=== PATIENT | female | born 1930 | race Caucasian/White ===

== ENCOUNTER 2017-09-30 14:57 | Inpatient (IN) | payer OTHER ==
--- NOTE | 2017-09-30 15:35 | EDPHY ---
H & P Time Seen by Provider: 09/30/17 15:16 HPI/ROS: CHIEF COMPLAINT: Difficulty breathing HISTORY OF PRESENT ILLNESS: The patient is a 86-year-old female with a history of COPD who presents emergency department increasing shortness of breath. The patient is visiting her daughter. She flew in from [place] on Friday. After arrival she noticed that her left foot was swollen. That is improved since her arrival. She has no leg pain. Patient is had increasing shortness of breath. She feels fatigued when she walks upstairs. She has a chronic cough that is unchanged. She denies fevers or chills. No chest pain. REVIEW OF SYSTEMS: My complete review of systems is negative except as mentioned in the HPI. Past Medical/Surgical History: Includes COPD, DVT in the right leg, PE Smoking Status: Former smoker Physical Exam: Vitals noted GENERAL: Well-appearing, in no acute distress, alert. HEENT: Eyes normal to inspection, normal pharynx, no signs of dehydration. NECK: No thyromegaly, no lymphadenopathy, supple. RESPIRATORY: Clear to auscultation bilaterally, no rales, rhonchi or wheezing. CVS: Regular rate and rhythm, no rubs, murmurs, or gallops. ABDOMEN: Soft, nontender, nondistended, no organomegaly. BACK: Normal to inspection, no CVA tenderness. SKIN: Normal color, no rash, warm, dry. No pallor. EXTREMITIES: No pedal edema, no calf tenderness, no Homans sign or cords, no joint swelling. NEURO/PSYCH: Alert and oriented, normal mood and affect, normal motor sensory exam. Constitutional: Initial Vital Signs Temperature (C) 37 C 09/30/17 15:13 Heart Rate 80 09/30/17 15:13 Respiratory Rate 16 09/30/17 15:13 Blood Pressure 116/65 09/30/17 15:13 O2 Sat (%) 94 09/30/17 15:13 O2 Delivery Mode Room Air Allergies/Adverse Reactions: No Known Allergies Allergy (Unverified 09/30/17 15:10) Home Medications: Medication Instructions Recorded [place] Thyroid 09/30/17 Coumadin 09/30/17 Diltiazem 09/30/17 Flonase Nasal [place] 09/30/17 Lasix 09/30/17 Medical Decision Making - Diagnostics EKG Interpretation: Sinus rhythm at 91. Patient has ventricular trigeminy. Left axis deviation. Imaging Results: Imaging Impressions Extremity Venous Study 09/30/17 15:39 Impression: Positive deep venous thrombosis involving the left popliteal and femoral veins. Findings and recommendations discussed with Emergency Department physician, VAN ALFORD at 16:26 hour, 09/30/2017. Final report concurs with initial preliminary interpretation. ED Course/Re-evaluation: In the emergency department I met the patient on arrival. I discussed possible etiologies. I answered the patient's questions. IV was placed. Laboratory studies, EKG and chest x-ray were obtained. Because of the patient's left ft swelling and ultrasound was ordered. Patient has elevated white count of 13. LLE ultrasound: Patient is noted to have a DVT. Please refer the dictated report by Dr. Doss. I ordered Lovenox 60 mg subcu. I discussed the case with Dr. Bob. He will admit the patient. Patient has elevated troponin [place] 0.[place] [address]. 1650: I discussed all results with the patient. I answered her questions. I discussed her diagnosis of clotting. When this was mentioned she states that she previously had a DVT and PE. She states that she is currently taking Coumadin. She did not initially relay this information when I 1st evaluated her. Because of this I ordered PT PTT. Differential Diagnosis: My differential includes but is not limited to ACS, acute NC, bronchitis, pneumonia, influenza, viral illness, PE - Data Points Laboratory Results: Laboratory Results 09/30/17 15:45 09/30/17 15:45 09/30/17 09/30/17 09/30/17 15:45 15:45 15:45 WBC 13.89 10^3/uL H 10^3/uL (3.80-9.50) RBC 3.94 10^6/uL L 10^6/uL (4.18-5.33) Hgb 12.1 g/dL L g/dL (12.6-16.3) Hct 36.0 % L % (38.0-47.0) MCV 91.4 fL fL (81.5-99.8) MCH 30.7 pg pg (27.9-34.1) MCHC 33.6 g/dL g/dL (32.4-36.7) RDW 18.3 % H % (11.5-15.2) Plt Count 251 10^3/uL 10^3/uL (150-400) MPV 11.8 fL H fL (8.7-11.7) Neut % (Auto) 77.7 % H % (39.3-74.2) Lymph % (Auto) 11.8 % L % (15.0-45.0) [place] % (Auto) 8.1 % % (4.5-13.0) Eos % (Auto) 1.2 % % (0.6-7.6) Baso % (Auto) 0.6 % % (0.3-1.7) Nucleat RBC Rel Count 0.0 % % (0.0-0.2) Absolute Neuts (auto) 10.78 10^3/uL H 10^3/uL (1.70-6.50) Absolute Lymphs (auto) 1.64 10^3/uL 10^3/uL (1.00-3.00) Absolute Monos (auto) 1.13 10^3/uL H 10^3/uL (0.30-0.80) Absolute Eos (auto) 0.17 10^3/uL 10^3/uL (0.03-0.40) Absolute Basos (auto) 0.08 10^3/uL 10^3/uL (0.02-0.10) Absolute Nucleated RBC 0.00 10^3/uL 10^3/uL (0-0.01) Immature Gran % 0.6 % % (0.0-1.1) Immature Gran # 0.09 10^3/uL 10^3/uL (0.00-0.10) PT Pending INR Pending APTT Pending Sodium 134 mEq/L L mEq/L (135-145) Potassium 4.0 mEq/L mEq/L (3.3-5.0) Chloride 100 mEq/L mEq/L (97-110) Carbon Dioxide 25 mEq/l mEq/l (22-31) Anion Gap 9 mEq/L mEq/L (8-16) BUN 21 mg/dL mg/dL (7-23) Creatinine 0.7 mg/dL mg/dL (0.6-1.0) Estimated GFR > 60 Glucose 108 mg/dL H mg/dL (70-100) Calcium 8.7 mg/dL mg/dL (8.5-10.4) Troponin I 0.086 ng/mL H ng/mL (0.000-0.034) NT-Pro-B Natriuret Pep 92039 pg/mL H pg/mL (0-450) Medications Given: Discontinued Medications Enoxaparin Sodium (Lovenox) 60 mg SC EDNOW ONE Stop: 09/30/17 16:35 Last Admin: 09/30/17 16:54 Dose: Not Given Departure - Departure Disposition: [facility] Inpatient Acute Clinical Impression: Shortness of breath DVT (deep venous thrombosis) Qualifiers: DVT location: lower extremity Affected thrombotic vein of extremity: femoral Chronicity: acute Laterality: left Qualified Code(s): I82.412 - Acute embolism and thrombosis of left femoral vein CHF (congestive heart failure) Qualifiers: Heart failure type: other Qualified Code(s): I50.9 - Heart failure, unspecified Condition: Good
[2017-09-30 15:54] LABS: PLATELET COUNT 251 10^3/uL (150-400)
--- NOTE | 2017-09-30 16:23 | CPEKG ---
Heart Rate: 91 RR Interval: 659 P-R Interval: 164 QRSD Interval: 84 QT Interval: 372 QTC Interval: 458 P [place]: 77 QRS [place]: -31 T Wave [place]: 62 EKG Severity - ABNORMAL ECG - EKG Impression: SINUS RHYTHM EKG Impression: Frequent PVC EKG Impression: PROBABLE LEFT ATRIAL ABNORMALITY EKG Impression: LEFT AXIS DEVIATION EKG Impression: PROBABLE ANTEROSEPTAL INFARCT, AGE INDETERM Electronically Signed By: Magen Anderson 02-Oct-2017 08:53:37
[2017-09-30] MEDS ORDERED: ENOXAPARIN 60 MG/0.6 ML SYR SC ONE (16:34)
[2017-09-30] MEDS ORDERED: IOPAMIDOL (ISOVUE 370) 100 ML BTL IV ONE (17:08)
[2017-09-30 17:17] LABS: INR 2.48 (0.83-1.16); PROTIME(PATIENT) 26.8 SEC (12.0-15.0)
[2017-09-30] MEDS ORDERED: ACETAMINOPHEN 325 MG TAB PO PRN (17:53)
[2017-09-30] MEDS ORDERED: ONDANSETRON 4 MG/2 ML VIAL IVP PRN (17:53)
--- NOTE | 2017-09-30 18:29 | GHP ---
[f rep st] HISTORY AND PHYSICAL DATE OF ADMISSION: 09/30/2017 CHIEF COMPLAINT: Shortness of breath and leg swelling. 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 Upon disembarking the plan e on Friday she noticed some swelling in her left leg. Over the past few days, she has had increasin g shortness of breath and dry mouth. She has been trying to drink more water. This has not helped. She is on Lasix for history of congestive heart failure as well which she has been taking. She mckinley es any chest pain. She does have chronic dry nonproductive cough. She tells me she has been complia nt with her warfarin. She has not missed any doses. Her INR had been running high a couple of weeks ago, but her dose was decreased. PAST MEDICAL HISTORY: 1. Chronic obstructive pulmonary disease. 2. Congestive heart failure. 3. Non-Hodgkin's lymphoma. 4. PE and DVT. 5. Postnasal drip. PAST SURGICAL HISTORY: 1. Bladder suspension. 2. Hysterectomy. HOME MEDICATIONS: Reviewed, refer to [facility] for details. ALLERGIES: No known drug allergies. SOCIAL HISTORY: She quit smoking in the 70s. She denies any significant alcohol use. She denies an y illicit drug use. FAMILY HISTORY: Reviewed and noncontributory. REVIEW OF SYSTEMS: Comprehensive 10-point review of systems was done and is negative, except for as mentioned in the HPI. PHYSICAL EXAM: VITAL SIGNS: Blood pressure 121/77, pulse of 77, respiratory rate 20, O2 saturation 96% on room air. Temperature afebrile. GENERAL: No acute distress. HEAD: Normocephalic, atraumat ic. EYES: PERRLA. Sclerae anicteric. MOUTH: Moist mucous membranes. NECK: Supple. No lymphade nopathy. CARDIOVASCULAR: S1-S2 no JVD. No lower extremity edema. PULMONARY: Lungs are clear. No wheezes, rales, or rhonchi. ABDOMEN: Soft, nontender, nondistended. No guarding or rebound tender ness. Normoactive bowel sounds. EXTREMITIES: Left leg is swollen. There are 2+ dorsal pedal and p osterior tibial pulses. SKIN: Clear, no rashes. NEURO: Cranial nerves 2-12 grossly intact. No fo [place] motor or sensory deficits. DIAGNOSTICS: WBC is 13.89, hemoglobin 12.1, hematocrit 36, platelets 251. INR 2.48. Sodium 134, po tassium 4, chloride 100, CO2 25, BUN 21, creatinine 0.7, glucose 108, calcium 8.7. Troponin: Indete rminate at 0.086. BNP is 10,000. Chest x-ray, which I visualized and personally interpreted, shows borderline cardiomegaly without pul monary edema. EKG, which I visualized and personally interpreted, shows sinus rhythm, rate 91 beats per minute. Th ere are multiple PVCs. CT angio of the chest: Preliminary read was negative for PE. ASSESSMENT AND PLAN: This is an 86-year-old female visiting from [place] on Warfarin with a therap eutic INR presenting with: 1. Left lower extremity DVT seen on ultrasound representing Coumadin failure. PLAN: The patient wi ll be started on low-molecular weight heparin and warfarin will be held. The patient plans to follow up with a hotel server back in [place] for further workup. 2. Shortness of breath with history of COPD and congestive heart failure with elevated BNP which I s uspect is due to mildly decompensated diastolic heart failure given her exam. PLAN: The patient cherelle ears to be euvolemic at this time. We will hold diuretic and obtain echocardiogram to further evalua te her myocardium and ejection fraction. 3. Indeterminate troponin. PLAN: We will cycle and treat accordingly. DISPOSITION: The patient will be placed on observation for now pending further workup and evaluation . /[id number]/MODL
[2017-09-30] MEDS ORDERED: FLUTICASONE NASAL 120 SPRAYS/16 GM MDI EACHNARE PRN (19:01)
[2017-09-30] MEDS: ENOXAPARIN 60 MG/0.6 ML SYR SC SCH (21:13)
[2017-10-01 04:19] LABS: PLATELET COUNT 250 10^3/uL (150-400)
[2017-10-01] MEDS: THYROID 30 MG TAB PO SCH (08:40)
[2017-10-01] MEDS: FUROSEMIDE 20 MG TAB PO SCH (08:41)
[2017-10-01] MEDS: DILTIAZEM CD 120 MG CAP PO SCH (08:41)
[2017-10-01] MEDS: ENOXAPARIN 60 MG/0.6 ML SYR SC SCH ×2 (08:41→21:34)
[2017-10-01] MEDS ORDERED: DILTIAZEM 120 MG PO SCH (09:00)
[2017-10-01] MEDS ORDERED: THYROID 60 MG TAB PO SCH (10:00)
[2017-10-01] MEDS ORDERED: FUROSEMIDE 20 MG/2 ML VIAL IVP ONE (10:52)
[2017-10-01] MEDS: methylPREDNISolone SOD SUCC 125 MG/2 ML VIAL IVP SCH ×3 (11:49→21:33)
[2017-10-01] MEDS: ALBUTEROL 3 ML DEYVIAL IH SCH ×3 (12:00→20:56)
--- NOTE | 2017-10-01 12:04 | ECHO ---
[email or web address] [address] Main: [phone] Fax: Transthoracic Echocardiogram Name: ANGELICA FERNANDES MR#: [id number] Study Date: 10/01/2017 Study Time: 07:57 AM Date of : 1930 Age: 86 year(s) Height: 152.4 cm (60 in.) Weight: 55.79 kg (123 lb.) BSA: 1.52 m2 Gender: Female Examination: Echo Indication: Heart failure Image Quality: Contrast: Requested by: Heriberto Bob BP: 102 mmHg/75 mmHg Heart Rate: Rhythm: Indication: Heart failure Procedure Staff Child Development Director: Kayla Hunter RDCS Reading Physician: Robbie Dunlap MD Requesting Provider: Conclusions: No pericardial effusion. Ejection fraction 40-45%. Mitral annular calcification with moderate to severe mitral regurgitation left atrial enlargement. Aortic valve leaflet calcification with mild aortic regurgitation. Measurements: Chambers Valvular Assessment AV/MV Valvular Assessment TV/PV Normal Normal Normal Name Value Range Name Value Range Name Value Range Ao Pati (MM): 3.5 cm (2.2 cm-3.7 AV meanP mmHg ( - ) TR Vmax: 3.47 mm/s ( - ) cm) DAVON (VTI): 2.3 cm ( - ) TR PGmax: 48 mmHg ( - ) IVSd (2D): 0.8 cm (0.6 cm-1.1 MV E Vmax: 1.16 m/s ( - ) syst. PAP: 58 mmHg ( - ) cm) MV A Vmax: 0.91 m/s ( - ) LVDd (2D): 4.8 cm (3.9 cm-5.3 MV E/A: 1.27 ( - ) cm) MV meanP mmHg ( - ) LVDs (2D): 3.8 cm (2.1 cm-4 cm) MVA (Vmax): 1.6 m/s ( - ) LVPWd (2D): 0.6 cm ( - ) LVOTd 1.9 cm 1.9 cm mm LVEF (2D): 39 (>=54 %) EF Range: 40-45 % Continued Measurements: Chambers Valvular Assessment AV/MV Valvular Assessment TV/PV Name Value Name Value Name Value LADs: 4.0 cm MV Annulus: 3.1 cm CVP (est.): 10 mmHg LADs Lon.0 cm MV E' Septal: 0.06 m/s LA Area: 17.3 cm2 MV E/E' Septal: 20.90 LA Volume: 56 ml MV E/E' Lateral: 18.30 LA Volume Index: 36.8 ml/m2 MV VTI: 25.60 cm Patient: ANGELICA FERNANDES Study Date: 10/01/2017 Page 1 of 2 07:57 AM MR Vena Contracta: 0.4 cm MR ERO: 0.160 cm2 MR PISA radius: 5 mm MR Reg. Volume: 17 ml MR Reg. Fraction: 9 % Findings: Left Ventricle: Normal size left ventricle. No LV hypertrophy. Normal global systolic LV function. The ejection fraction is estimated to be 40-45 %. Diastolic dysfunction is present. . LV septal wall and basal inferior/inferoseptal marin appears hypokinetic. . Right Ventricle: Normal size right ventricle. There is a moderator band noted in the right ventricle. Left Atrium: The left atrium is mildly dilated. Right Atrium: The right atrium is mildly dilated. Mitral Valve: Moderate mitral annular calcification. Mild mitral valve leaflet calcification is present. Moderate to severe mitral regurgitation. Aortic Valve: The aortic valve is tri-leaflet. Mild aortic valve regurgitation is present. Moderate calcification of the NCC of the aortic valve.. Tricuspid Valve: The tricuspid valve is normal in appearance and function. Moderate tricuspid regurgitation is present. Pulmonic Valve: The pulmonic valve is normal in appearance and function. Trivial pulmonic valve regurgitation. Aorta: The aorta is normal. Pericardium: No pericardial effusion. There is pericardial fat. Exam Comments: Due to pt's arrthythmia, unable to trace for accurate EF.. (No Signature Object) Patient: ANGELICA FERNANDES Study Date: 10/01/2017 Page 2 of 2 07:57 AM [id number]
--- NOTE | 2017-10-01 12:09 | ASMTCASEMG ---
Living Arrangements What is your living Answers: Alone arrangement? Who do you live with? Type Of Residence What kind of residence do Answers: House you live in? Discharge Plan Comments Coordination Status Comments Notes: Pts case discussed in morning rounds. Pt is a 86 y/o female admitted for shortness of breath and leg swelling. Pt is here visiting her daughter and grand daughter. Pt lives in [place]. Therapies have been ordered and awaiting recommendations. Needs are TBD at this time. CM to follow. Plan: TBD Date Signed: 10/01/2017 12:08 PM Electronically Signed By:RIKY Fox
--- NOTE | 2017-10-01 13:08 | HOSPPROG ---
Hospitalist Progress Note Assessment/Plan: #Warfarin Failure #Acute LLE DVT -non occlusive left popliteal and femoral veins -Hx of PE and DVT's #CH #COPD with mild exacerbation #Indeterminate troponin Plan: -cont Lovenox -Cont Cardizem -Give additional Lasix x 1 -Start Solumedrol and Albuterol -Change to inpatient Subjective: Still with SOB. Mild bilateral pedal edema. no Cp. + Wheeze. no hx of supplemental O2 Objective: Vital Signs Temp Pulse Resp BP Pulse Ox 36.7 C 97 18 138/64 H 92 10/01/17 11:42 10/01/17 11:42 10/01/17 11:42 10/01/17 11:42 10/01/17 11:42 Laboratory Results 10/01/17 03:34 10/01/17 03:34 09/30/17 10/01/17 10/02/17 05:59 05:59 05:59 Intake Total 200 400 Output Total 700 300 Balance -500 100 PT 26.8 SEC (12.0-15.0) H 09/30/17 15:45 INR 2.48 (0.83-1.16) H 09/30/17 15:45 - Physical Exam Constitutional: no apparent distress, appears nourished Eyes: PERRL, EOMI Ears, Nose, Mouth, Throat: moist mucous membranes, hearing normal Cardiovascular: regular rate and rhythym, edema (trace) Respiratory: no respiratory distress, no rales or rhonchi, expiratory wheeze Gastrointestinal: normoactive bowel sounds, soft, non-tender abdomen Skin: warm Musculoskeletal: generalized weakness Neurologic: AAOx3 Psychiatric: interacting appropriately, not anxious, not encephalopathic Lymph, Heme, Immunologic: No petechiae ICD10 Worksheet Patient Problems: Problems Problem Status Onset CHF (congestive heart failure) Acute DVT (deep venous thrombosis) Acute Shortness of breath Acute
--- NOTE | 2017-10-01 16:06 | PDMN ---
Medical Necessity Medical necessity: Change to IP, as of 10/01/17, per MD; los >2 mn for ongoing management of acute LLE DVT, COPD/CHF exacerbations & indeterminate troponin; admit for further monitoring, med management, respiratory supportive care & therapy; comorbid advanced age, COPD, CHF, Non-Hodgkin's lymphoma, PE & DVT on AC; per progress note & order 10/01/17
[2017-10-02] MEDS: ALBUTEROL 3 ML DEYVIAL IH SCH ×2 (06:01→12:02)
[2017-10-02] MEDS: methylPREDNISolone SOD SUCC 125 MG/2 ML VIAL IVP SCH (06:19)
[2017-10-02] MEDS: ENOXAPARIN 60 MG/0.6 ML SYR SC SCH (08:44)
[2017-10-02] MEDS: FUROSEMIDE 20 MG TAB PO SCH (08:44)
[2017-10-02] MEDS: DILTIAZEM CD 120 MG CAP PO SCH (08:45)
[2017-10-02] MEDS: THYROID 30 MG TAB PO SCH (08:46)
--- NOTE | 2017-10-02 11:33 | ASMTLACE ---
LACE Length of stay for Answers: 2 days current admission Acuity / Level of Answers: Yes Care: Did the patient have an inpatient admission? Comorbidities - select Answers: Chronic pulmonary disease all that apply # of Emergency department Answers: 1-2 visits in the last 6 months Score: 8 Date Signed: 10/02/2017 11:32 AM Electronically Signed By:Kayli Bray
[2017-10-02 11:34] VITALS: BP 114/71
--- NOTE | 2017-10-02 11:45 | PDDCSUM ---
Discharge Summary Discharge Summary: HPI/Hospital course This is a 86 yo female with hx of VTE on lifetime chronic AC who was on Warfarin with therapeutic INR who developed a left sided non occlusive popliteal and femoral veins clots. Coumadin was discontinued. she has been started on Lovenox. We offered transition to an oral agent but as she is out of town, she wants to wait until she f/u with her Cardboard Cutter. For now she will cont with Lovenox. She was also found to be hypoxic due to mild fluid overload and mild COPD exacerbation. Lasix were given and she is Euvolemic currently. She has been started on steroids. She is on RA and ready for d/c She will f/u with her PCP and her Cardboard Cutter during the first week of October DDX: #Warfarin Failure #Acute LLE DVT -non occlusive left popliteal and femoral veins -Hx of PE and DVT's #CH #COPD with mild exacerbation #Indeterminate troponin Exam: NAD AAOX3 RRR CTA B S/NT/ND NO LE EDEMA MEDS: SEE MED REC. F/U: PER ABOVE TOTAL TIME SPENT ON D/C IS 35 MINS
--- NOTE | 2017-10-02 12:06 | ASDISCHSUM ---
Discharge Information Plan Status:Home with No Needs Medically Cleared to Leave:10/02/2017 Discharge Date:10/02/2017 CM D/C Disposition:Home, Routine, Self-Care ADT D/C Disposition:Home, Routine, Self-Care Projected Discharge Date:10/02/2017 Transportation at D/C:Family Discharge Delay Reason: Follow-Up Date:10/02/2017 Discharge Slot: Final Diagnosis: Placement Information Patient Contact Information Contact Name:YADIEL Relationship:Daughter Address: Work Phone: City:[place] Alternate Phone: State/[place] Code:[place] Email: Financial Information Financial Class:Medicare Primary Plan Desc:MEDICARE INPATIENT Primary Plan Number:[id number] Secondary Plan Desc: Secondary Plan Number:[id number] Assessment Information LACE LACE Length of stay for Answers: 2 days current admission Acuity / Level of Answers: Yes Care: Did the patient have an inpatient admission? Comorbidities - select Answers: Chronic pulmonary disease all that apply # of Emergency department Answers: 1-2 visits in the last 6 months Score: 8 Date Signed: 10/02/2017 11:32 AM Electronically Signed By:Kayli Bray [facility] Initial CM Assessment Living Arrangements What is your living Answers: Alone arrangement? Who do you live with? Type Of Residence What kind of residence do Answers: House you live in? Discharge Plan Comments Coordination Status Comments Notes: Pts case discussed in morning rounds. Pt is a 86 y/o female admitted for shortness of breath and leg swelling. Pt is here visiting her daughter and grand daughter. Pt lives in [place]. Therapies have been ordered and awaiting recommendations. Needs are TBD at this time. CM to follow. Plan: TBD Date Signed: 10/01/2017 12:08 PM Electronically Signed By:RIKY Fox Case Management Discharge Plan Note Case Management Discharge Discharge Order Complete? Answers: Yes Patient to Obtain Answers: Independently Medications Transportation Arranged Answers: Family/Friends Discharge Comments Notes: 10/02/2017 Case Management Note Pt to d/c independent today. Pt visiting her daughter in [place]. Transitional Care to follow after d/c. Date Signed: 10/02/2017 12:05 PM Electronically Signed By:Norma Fan RN Intervention Information Intervention Type:*CYNDEE-Signed Date of Service:10/01/2017 10:27 AM Patient Type:Observation Staff Member:Genesis Rangel Hours: Discipline: Severity: Comment:
== END 2017-10-02 12:45 | disposition home or self-care (01) | DRG 300 ==
LOC: OBSVTOIN 17:53 → F2W 19:44
PROVIDERS: ADMIT Family Medicine; ATTEND Family Medicine
DX: I82.412 Acute embolism and thrombosis of left femoral vein (principal); I82.432 Acute embolism and thrombosis of left popliteal vein; J44.1 Chronic obstructive pulmonary disease with (acute) exacerbation; I50.9 Heart failure, unspecified; Z79.01 Long term (current) use of anticoagulants; Z87.891 Personal history of nicotine dependence; Z85.72 Personal history of non-Hodgkin lymphomas
CPT/HCPCS: 97116-GP; 97161-GP; 97165-GO; G0378; G8978-GP-CJ; G8979-GP-CI; G8980-GP-CI; G8987-GO-CI; G8988-GO-CI; G8989-GO-CI; J1650; J1940; J2930; J7613; Q9967

== ENCOUNTER 2017-10-05 08:06 | Observation (INO) | payer OTHER ==
--- NOTE | 2017-10-05 08:17 | EDPHY ---
H & P Stated Complaint: abd pain Time Seen by Provider: 10/05/17 08:14 HPI/ROS: CHIEF COMPLAINT: Nausea and abdominal pain HISTORY OF PRESENT ILLNESS: REVIEW OF SYSTEMS: This is an 86-year-old female who was discharged from this hospital on October 02 of this year after being admitted with a left lower extremity DVT in the face of an adequate INR on Coumadin. She is currently on Lovenox twice daily. During that hospitalization she was also noted to have some congestive heart failure. She has a history of COPD. She was started on prednisone. Yesterday after taking her prednisone she developed some nausea and had a small amount of vomiting. The nausea has persisted. She has had increased belching. She notes pain in the left upper quadrant and is finding it difficult to find a comfortable position. She has not had diarrhea. She did not have a bowel movement yesterday and has not had 1 today. She would typically have a bowel movement daily. She is urinating but somewhat less than usual. She has not noticed blood in her urine. Her breathing is essentially unchanged. She is more short of breath in [place] than when at home, at sea level but this is unchanged since she arrived. No fever. No chest pain but she has had pain at the base of her ribcage on the left. A ten point review of systems was performed and is negative with the exception of the items mentioned in the HPI. Past medical history: 1. PE and DVT, currently on Lovenox 2. COPD 3. History of CHF 4. Non-Hodgkin's lymphoma in remission 5. Sinus problems with postnasal drip Past surgical history: 1. Bladder suspension 2. Hysterectomy Family history: Noncontributory Social history: She lives in [place] and is here visiting her daughter and grandchildren. She quit smoking in the . She does not use alcohol. She does not use illicit drugs. General Appearance: Alert. Vital signs reviewed. Blood pressure 123/74. Vital signs otherwise within normal limits. Eyes: Pupils equal and round, no conjunctival injection, no discharge. Anicteric. ENT, Mouth: Mucous membranes are moist, no oropharyngeal erythema or edema. Neck: No lymphadenopathy, supple. Respiratory: Lungs with bilateral rales. Cardiovascular: Regular rate and rhythm; no murmur, rub, or gallop. Gastrointestinal: Abdomen is soft and mildly tender in the left lower quadrant (top of this quadrant) without guarding, no organomegaly, there is a soft mildly tender palpable mass measuring approximately 2 cm in the left upper quadrant (could correspond to stool), mass is nonreducible, bowel sounds normal. Skin: Warm and dry, no rashes on exposed skin, normal color. Back: Nontender to palpation over the thoracolumbar spine. No CVAT. Extremities: No lower extremity edema, no calf tenderness or swelling. Neurological: Alert and oriented. Moving all four extremities easily and equally. Psychiatric: Normal affect. - Personal History Current Tetanus/Diphtheria Vaccine: Yes Current Tetanus Diphtheria and Acellular Pertussis (TDAP): Yes - Medical/Surgical History Hx Asthma: No Hx Chronic Respiratory Disease: Yes Hx Diabetes: No Hx Cardiac Disease: Yes Hx Renal Disease: No Hx Cirrhosis: No Hx Alcoholism: No Hx HIV/AIDS: No Hx Splenectomy or Spleen Trauma: No Other PMH: chf, copd, PE, DVT, hypothyroid, bladder suspension, hysterectomy, Nonhodgkins lymphoma x2, - Social History Smoking Status: Former smoker Constitutional: Initial Vital Signs Temperature (C) 36.4 C 10/05/17 08:11 Heart Rate 90 10/05/17 08:11 Respiratory Rate 20 10/05/17 08:11 Blood Pressure 123/74 H 10/05/17 08:11 O2 Sat (%) 93 10/05/17 08:11 O2 Delivery Mode Room Air Allergies/Adverse Reactions: No Known Allergies Allergy (Verified 10/05/17 11:25) Home Medications: Medication Instructions Recorded Diltiazem HCl [Diltiazem 24Hr ER] 120 mg PO DAILY 09/30/17 Fluticasone Nasal [Flonase Nasal 1 sprays NASAL DAILY PRN 09/30/17 Marcellus] Furosemide [Lasix 20 MG (*)] 20 mg PO DAILY 09/30/17 Thyroid,Pork [[place] Thyroid] 30 mg PO DAILY10 09/30/17 Albuterol Sulfate [Proair 90 mcg IH TID PRN #1 aer.[email or web address] 10/02/17 Respiclick] Enoxaparin [Lovenox 60 MG (*)] 60 mg SC BID #24 syr 10/02/17 Herbals/Supplements -Info Only 1 ea PO DAILY 10/05/17 predniSONE 20 mg PO DAILY 10/05/17 Medical Decision Making - Diagnostics Imaging Results: Imaging Impressions Abdomen CT 10/05/17 08:39 Impression: 1. 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 2. Aortic atherosclerosis. 3. Prior granulomatous disease. 4. Adenomatous hypertrophy of the left adrenal gland. Results called to Dr. Villasenor at 10:00 a.m. Chest X-Ray 10/05/17 08:47 Impression: Stable negative chest. Mild cardiac enlargement.. ED Course/Re-evaluation: 86-year-old female recently started on prednisone who presents with nausea and left side abdominal pain. CT scan shows a spigelian hernia on the left. I suspect that this corresponds to the mass that I was able to palpate. The chronicity of this hernia is unclear. She was evaluated in the emergency department by Dr. Gale Solitario, who does not feel that this is the source of her pain but agrees with hospitalization and observation. It is possible that her pain is secondary to the prednisone that she recently started the. She did not take any prednisone today. Can you try antacid medications to see if this relieves her pain. She has not had vomiting in the emergency department. I do not suspect bowel obstruction. CT scan does not indicate diverticulitis. She is not constipated and and has not had diarrhea. She is being mid to the hospitalist service for further evaluation and treatment as needed. - Data Points Laboratory Results: Laboratory Results 10/05/17 08:50 10/05/17 08:50 10/05/17 10/05/17 10/05/17 10:22 08:50 08:50 WBC RBC Hgb Hct MCV MCH MCHC RDW Plt Count MPV Neut % (Auto) Lymph % (Auto) Cavalier % (Auto) Eos % (Auto) Baso % (Auto) Nucleat RBC Rel Count Absolute Neuts (auto) Absolute Lymphs (auto) Absolute Monos (auto) Absolute Eos (auto) Absolute Basos (auto) Absolute Nucleated RBC Immature Gran % Immature Gran # VBG Lactic Acid 1.3 mmol/L mmol/L (0.7-2.1) Sodium 135 mEq/L mEq/L (135-145) Potassium 3.4 mEq/L mEq/L (3.3-5.0) Chloride 95 mEq/L L mEq/L (97-110) Carbon Dioxide 30 mEq/l mEq/l (22-31) Anion Gap 10 mEq/L mEq/L (8-16) BUN 23 mg/dL mg/dL (7-23) Creatinine 0.7 mg/dL mg/dL (0.6-1.0) Estimated GFR > 60 Glucose 188 mg/dL H mg/dL (70-100) Calcium 8.5 mg/dL mg/dL (8.5-10.4) Total Bilirubin 0.7 mg/dL mg/dL (0.1-1.4) Conjugated Bilirubin 0.4 mg/dL mg/dL (0.0-0.5) Unconjugated Bilirubin 0.3 mg/dL mg/dL (0.0-1.1) AST 33 IU/L IU/L (14-46) ALT 40 IU/L IU/L (9-52) Alkaline Phosphatase 72 IU/L IU/L (38-126) Troponin I 0.097 ng/mL H ng/mL (0.000-0.034) Total Protein 6.0 g/dL L g/dL (6.3-8.2) Albumin 3.3 g/dL L g/dL (3.5-5.0) Lipase 105 IU/L IU/L (23-300) 10/05/17 08:50 WBC 17.62 10^3/uL H 10^3/uL (3.80-9.50) RBC 3.91 10^6/uL L 10^6/uL (4.18-5.33) Hgb 12.1 g/dL L g/dL (12.6-16.3) Hct 34.9 % L % (38.0-47.0) MCV 89.3 fL fL (81.5-99.8) MCH 30.9 pg pg (27.9-34.1) MCHC 34.7 g/dL g/dL (32.4-36.7) RDW 18.0 % H % (11.5-15.2) Plt Count 250 10^3/uL 10^3/uL (150-400) MPV 11.6 fL fL (8.7-11.7) Neut % (Auto) 89.2 % H % (39.3-74.2) Lymph % (Auto) 4.4 % L % (15.0-45.0) Cavalier % (Auto) 4.8 % % (4.5-13.0) Eos % (Auto) 0.1 % L % (0.6-7.6) Baso % (Auto) 0.1 % L % (0.3-1.7) Nucleat RBC Rel Count 0.3 % H % (0.0-0.2) Absolute Neuts (auto) 15.73 10^3/uL H 10^3/uL (1.70-6.50) Absolute Lymphs (auto) 0.77 10^3/uL L 10^3/uL (1.00-3.00) Absolute Monos (auto) 0.84 10^3/uL H 10^3/uL (0.30-0.80) Absolute Eos (auto) 0.02 10^3/uL L 10^3/uL (0.03-0.40) Absolute Basos (auto) 0.02 10^3/uL 10^3/uL (0.02-0.10) Absolute Nucleated RBC 0.06 10^3/uL H 10^3/uL (0-0.01) Immature Gran % 1.4 % H % (0.0-1.1) Immature Gran # 0.24 10^3/uL H 10^3/uL (0.00-0.10) VBG Lactic Acid Sodium Potassium Chloride Carbon Dioxide Anion Gap BUN Creatinine Estimated GFR Glucose Calcium Total Bilirubin Conjugated Bilirubin Unconjugated Bilirubin AST ALT Alkaline Phosphatase Troponin I Total Protein Albumin Lipase Medications Given: Acetaminophen (Tylenol) 650 mg PO Q4HRS PRN PRN Reason: Pain, Mild/Fever, Can Take PO Stop: 04/03/18 13:23 Last Admin: 10/05/17 14:41 Dose: 650 mg Diltiazem HCl (Cardizem Er Q24hr) 120 mg PO DAILY DIONE Stop: 04/03/18 13:29 Last Admin: 10/05/17 14:41 Dose: 120 mg Enoxaparin Sodium (Lovenox) 60 mg SC BID DIONE Stop: 04/03/18 13:29 Last Admin: 10/05/17 14:41 Dose: 60 mg Furosemide (Lasix) 20 mg PO DAILY DIONE Stop: 04/03/18 13:29 Last Admin: 10/05/17 14:40 Dose: 20 mg Discontinued Medications Ondansetron HCl (Zofran) 4 mg IVP EDNOW ONE Stop: 10/05/17 08:40 Last Admin: 10/05/17 08:58 Dose: 4 mg Departure - Departure Disposition: [facility] Inpatient Acute Clinical Impression: Abdominal pain Qualifiers: Abdominal location: left upper quadrant Qualified Code(s): R10.12 - Left upper quadrant pain Condition: Good
[2017-10-05] MEDS ORDERED: ONDANSETRON 4 MG/2 ML VIAL IVP ONE (08:39)
[2017-10-05 09:08] LABS: PLATELET COUNT 250 10^3/uL (150-400)
[2017-10-05] MEDS ORDERED: IOPAMIDOL (ISOVUE-300) 100 ML BTL ONE (09:24)
[2017-10-05] MEDS ORDERED: FLUTICASONE NASAL 120 SPRAYS/16 GM MDI NS PRN (13:18)
[2017-10-05] MEDS ORDERED: ALBUTEROL SULFATE 90 MCG IH PRN (13:18)
[2017-10-05] MEDS ORDERED: PROMETHAZINE HCL 25 MG/ML INJ IVP PRN (13:24)
[2017-10-05] MEDS ORDERED: ONDANSETRON 4 MG/2 ML VIAL IVP PRN (13:24)
[2017-10-05] MEDS ORDERED: ONDANSETRON DISINTEGRATING 4 MG TAB PO PRN (13:24)
[2017-10-05] MEDS ORDERED: ACETAMINOPHEN 325 MG TAB PO PRN (13:24)
--- NOTE | 2017-10-05 14:33 | PDGENHP ---
History and Physical History and Physical: Chief complaint: Abdominal pain History of present illness: The patient is an 86yo F who returns to the hospital after she was recently discharged after having a LLE DVT and COPD exacerbation. She had failed warfarin and was put on SQ Lovenox BID. For COPD exacerbation, she was started on prednisone. Abdominal pain is located in LUQ, characterized as aching, and has a severity of 5/10 with no radiation. She has had some associated nausea with an episode of dry retching. She denies diarrhea or blood in stool. She has been constipated x 1.5 days, as she missed having a BM today and yesterday. She has had similar symptoms in the past, which subsided when she drinks Ensure because "it coats the stomach". She has not tried taking OTC medication such as acetaminophen or NSAIDs. Past medical history: COPD, CHF, non-Hodgkin lymphoma, PE and DVT. Past surgical history: Bladder suspension, hysterectomy Medications: Please see medication reconciliation form for dosages and frequencies. Medications include Armor Thyroid, diltiazem, Lovenox 60 mg twice daily, fluticasone nasal spray, furosemide, prednisone 20 mg daily. Allergies: No known allergies. Social history: Quit smoking in the 1970s. Denies alcohol use. Denies recreational drugs. Lives in [place]. She is visiting her daughter in [place]. Family history: Noncontributory Review of systems: 10 point review of systems was conducted and is negative except per HPI Physical exam: Vitals: Reviewed General: The patient is an elderly female who is alert and in no acute distress. HEENT: normocephalic, extraocular movements intact, conjunctivae clear, no lesions on face. Mucous membranes moist. Neck: trachea midline, no visible masses, no external lesions. CV: +S1/S2, RRR, no MRG. Resp: unlabored, CTAB no RRW. Abd: soft and nondistended. Bowel sounds present. Mild tenderness in left upper quadrant and mid epigastrium to deep palpation. No rebound tenderness or guarding. Musculoskeletal: Normal muscle tone and bulk. Neuro: cranial nerves II XII grossly intact. Intact gross motor and sensory function. Psych: appropriate mood/affect. Skin: No pallor. Heme/lymph: No peripheral edema. Labs: WBC 17.6 hemoglobin 12.1 platelets 250. Sodium 135 potassium 3.4 CO2 30 BUN 23 creatinine 0.7 glucose 188. Lipase 105. Other Data: Abdomen/pelvis CT with contrast-small spigelian hernia left lower quadrant containing omental fat. Abdominal Aortic atherosclerosis. Adenomatous hyperplasia left adrenal gland. Calcified granuloma in the spleen and calcified granuloma in right lower lung. Chest x-ray-no acute cardiopulmonary abnormality. Impression and plan: Abdominal pain Nausea Recent COPD exacerbation, resolved Acute LLE DVT Hx DVT/PE/thrombophilia CHF, diastolic Hx Non-Hodgkin Lymphoma, in remission -Euvolemic - no need for IVF. -Suspect abd pain is 2/2 steroid induced gastropathy - gastritis or ulcer. No evidence of bleeding. -Observe overnight, recheck labs in AM. If stable, may DC to home. -H2 leila. Offered carafate, but pt would rather have Ensure. Also ordered GI cocktail. -Monitor on telemetry. Check a troponin level in case she is having atypical MO symptom. -DC steroid. -Resume home meds, except steroid. VTE ppx - Lovenox therapeutic dose. GI ppx - H2 leila. Code status - full. Dispo: observation status, likely DC in AM.
[2017-10-05] MEDS: FUROSEMIDE 20 MG TAB PO SCH (14:40)
[2017-10-05] MEDS: ENOXAPARIN 60 MG/0.6 ML SYR SC SCH ×2 (14:41→22:38)
[2017-10-05] MEDS: DILTIAZEM CD 120 MG CAP PO SCH (14:41)
--- NOTE | 2017-10-05 14:56 | GCON ---
[f rep st] CONSULTATION DATE OF CONSULTATION: 10/05/2017 CHIEF COMPLAINT: Nausea and abdominal pain. HISTORY OF PRESENT ILLNESS: The patient is a pleasant 86-year-old woman who is initially from [facility]. She has been traveling to [place] twice this year. She was more recently admitted to the [facility] due to left lower extremity DVT despite being therapeutically anticoagulated. She was also note d to have congestive heart failure. Her troponins were elevated. She was also started on prednisone . She had a normal bowel movement 2 days ago. She also ate Raisin Bran on that day, which is someth ing unusual for her. Yesterday she ate a hard boiled egg. She has not had a bowel movement since . She is complaining of nausea. She is uncomfortable and she has pain in her left upper quad rant. PAST MEDICAL HISTORY: PE/DVT on Lovenox, COPD, CHF, non-Hodgkin's lymphoma in remission. PAST SURGICAL HISTORY: Hysterectomy, bladder suspension. FAMILY HISTORY: Noncontributory. SOCIAL HISTORY: She lives in [place] and is currently here on a 2 week trip. She quit smoking 197 0. She is independent. PHYSICAL EXAMINATION: VITAL SIGNS: 36.8, 85, 135/76, 17, 94% on 3 L. GENERAL: Pleasant, well-nour ished, well-groomed woman lying on gurney, appears slightly uncomfortable. Daughter at bedside. EVELIA NT: Normocephalic. No gross hearing deficits. Mucous membranes moist. Pupils equal and round. No scleral icterus. LUNGS: Clear to auscultation bilaterally. No increased work of breathing. CARDI AC: Regular rate. ABDOMEN: Bowel sounds are present. She is soft. She is somewhat tender in the left upper quadrant. She does have a mass in the left lower quadrant that is non-reducible. SKIN: Warm and dry. PSYCH: Mood and affect normal. NEURO: Grossly intact. LABORATORY/IMAGING: I personally reviewed the results of her CT scan and I can see a fat containing spigelian hernia in the left lower quadrant. I see gas and stool across her colon. She has a calcif ied aorta, but I do see at least 2 vessels, celiac and SMA coming off that are patent. I do not see any edema of the bowel. I do not see free air. Her white blood cell count is 17.62. IMPRESSION/PLAN: 86-year-old woman with pain in left upper quadrant, nausea, constipation, and spige néstor hernia. 1. Spigelian hernia. She states that she has had this for a number of years. She is slightly tende r over the area. I do not think this is the cause of her abdominal pain. Should it become worse, th en we can operate on it. She would obviously need to be transitioned to a heparin drip as she has re cently had deep venous thrombosis despite being therapeutically anticoagulated. 2. Due to her calcified aorta, she is at risk that she could possibly have some bowel ischemia, alth ough her abdomen is relatively benign, so I think this is less likely. 3. Leukocytosis. I am unclear if this is due to the prednisone or if there is another acute issue g oing. 4. It is possible she could have a peptic ulcer or something else causing her nausea and left upper quadrant discomfort. I will continue to follow along. For now, I think she needs to be therapeutica lly anticoagulated. Heparin drip can be considered in the event that she may need intervention. /[id number]/MODL
[2017-10-05] MEDS ORDERED: traMADol 50 MG TAB PO PRN (19:16)
--- NOTE | 2017-10-05 19:35 | CPEKG ---
Heart Rate: 86 RR Interval: 698 P-R Interval: 151 QRSD Interval: 86 QT Interval: 412 QTC Interval: 493 P Mesa: 56 QRS Mesa: -32 T Wave Mesa: 62 EKG Severity - ABNORMAL ECG - EKG Impression: SINUS RHYTHM EKG Impression: LEFT AXIS DEVIATION EKG Impression: POOR R WAVE PROGRESSION Electronically Signed By: Sarmad Cabrera 06-Oct-2017 10:18:07
[2017-10-05] MEDS: IPRATROPIUM/ALBUTEROL 3 ML DEYVIAL IH SCH (19:40)
[2017-10-05] MEDS: FAMOTIDINE 20 MG TAB PO SCH (20:35)
[2017-10-05] MEDS ORDERED: ASPIRIN 325 MG TAB PO ONE (20:50)
--- NOTE | 2017-10-05 21:00 | HOSPPROG ---
Hospitalist Progress Note Assessment/Plan: XC note: called by RN with elevated trop 0.232. This is up from 0.07 several days ago. She continues to have epigastric abdominal pain, but no CP. Reviewed her echo from 09/30 and she did have wall motion abnormalities. EKG is non-ischemic though poor R wave progression in anterior leads noted. Will give ASA now, transfer to PCU and cont to trend trop. Discussed with cards , and they will see in am. Will make NPO at midnight in the event it is decided to proceed with angiogram, though noting her age and Lovenox use, may not be a great candidate for cath. Objective: Vital Signs Temp Pulse Resp BP Pulse Ox 36.6 C 75 24 H 122/66 H 97 10/05/17 20:00 10/05/17 20:00 10/05/17 20:00 10/05/17 20:00 10/05/17 20:00 10/04/17 10/05/17 10/06/17 05:59 05:59 05:59 Intake Total 600 Output Total 700 Balance -100 ICD10 Worksheet Patient Problems: Problems Problem Status Onset Abdominal pain Acute CHF (congestive heart failure) Acute DVT (deep venous thrombosis) Acute Shortness of breath Acute
[2017-10-06 06:25] LABS: PLATELET COUNT 258 10^3/uL (150-400)
[2017-10-06] MEDS: FAMOTIDINE 20 MG TAB PO SCH (08:09)
[2017-10-06] MEDS: DILTIAZEM CD 120 MG CAP PO SCH (08:10)
[2017-10-06 08:39] VITALS: BP 108/69
[2017-10-06] MEDS: IPRATROPIUM/ALBUTEROL 3 ML DEYVIAL IH SCH (08:47)
[2017-10-06] MEDS ORDERED: Thyroid,Pork [Armour Thyroid] 30 MG PO SCH (10:00)
--- NOTE | 2017-10-06 10:28 | SOAPPROG ---
SOAP Progress Note Assessment/Plan: 10/06/17 10:25 Assessment: Incisional hernia (from prior ) with incarcerated fat is non-tender. Pain resolved after bowel movement. Plan: No emergent/urgent intervention necessary, recommend follow up for this issue upon return to [place]. Will sign off Subjective: After I moved my bowels the pain resolved Objective: Vital Signs Temp Pulse Resp BP Pulse Ox 37.4 C 84 14 108/69 97 10/06/17 08:36 10/06/17 08:48 10/06/17 08:48 10/06/17 08:36 10/06/17 08:48 Laboratory Results 10/06/17 06:16 10/06/17 06:16 10/05/17 10/06/17 10/07/17 05:59 05:59 05:59 Intake Total 900 Output Total 1800 Balance -900 - Time Spent With Patient Time Spent With Patient: 15 Physical Exam - Physical Exam General Appearance: WD/WN, alert, no apparent distress Abdomen: normal bowel sounds, non-tender, soft (Incisional hernia at end of C- section with incarcerated fat is non-tender) ICD10 Worksheet Patient Problems: Problems Problem Status Onset Abdominal pain Acute CHF (congestive heart failure) Acute DVT (deep venous thrombosis) Acute Shortness of breath Acute
--- NOTE | 2017-10-06 11:26 | PDHOMEO2F ---
Home Oxygen Face to Face Home Orders: I certify that a physician or a nurse practitioner or physician's patent legal assistant has had a [id number] encounter with this patient on the date of this order due to the diagnosis listed, which relates to the primary reason the patient requires home oxygen. Alternative treatments have been tried, or considered, and deemed ineffective. It is anticipated that supplemental oxygen will result in improvement with treatment. Home oxygen qualifying diagnosis: CHF, COPD Home oxygen secondary diagnosis: Hypoxemia SpO2 on room air (%): 84% Frequency of home oxygen needed: with activity, continuous, during sleep Home oxygen liters per minute: 2 Home oxygen delivery device: nasal cannula Concentrator: Yes E-tanks for mobility and back up: Yes If ordering portable O2, is the patient mobile in the home?: Yes I certify that, based on these findings, the home oxygen is medically necessary for this patient for the following length of time. Length of time home oxygen needed: 1 month Home Oxygen Comment: patient is flying back to [place] next Wednesday 10/11.
--- NOTE | 2017-10-06 11:41 | PDDCSUM ---
Discharge Summary Discharge Summary: Date of Admission: October 05, 2017 Date of Discharge: October 06, 2017 Discharge Diagnoses: Acute abdominal pain, resolved Systolic and diastolic CHF, not in exacerbation COPD Hypoxemia requiring oxygen-multifactorial, including high altitude Acute LLE DVT Admission Diagnoses: Acute abdominal pain - LUQ/midepigastrium Systolic and diastolic CHF, not in exacerbation COPD with recent exacerbation Hypoxemia requiring oxygen-multifactorial, includes high altitude Acute LLE DVT Consultants: Cardiology-Dr. Kate. Gen Surg - Dr. Solitario. Hospital Course: The patient is an 86-year-old female who was readmitted to our hospital following a recent admission for COPD exacerbation and acute left lower extremity DVT, having failed warfarin. This time, she to returned for abdominal pain. This was attributed to constipation and suspected gastritis or non-bleeding peptic ulcer 2/2 prednisone, which she had been put on for recent COPD exacerbation. Prednisone was discontinued and patient was put on Pepcid. She had a large bowel movement and was feeling much better the next day. -Initially her troponin level had increased moderately but trended downward. Telemetry and EKG showed no acute ischemic changes but she was noted to have PACs/PVCs. Shelter Monitor was consulted for elevated troponin and recommended follow up in the outpatient setting for consideration of an angiogram. -General Surgery was consulted for a small incidentally found incisional abdominal hernia in [facility], but hernia surgery was not indicated at this time. -Patient was discharged to home on 1-2L oxygen for persistent hypoxemia, which is thought to be multifactorial - 2/2 CHF, COPD, and high altitude. She reports never having difficulty breathing at sea level and may very well not require oxygen after she returns home. -Patient may follow up with her PCP and specialists back home in [place] for further workup and treatment of aforementioned issues. Physical Exam: General: The patient is an elderly female who is alert and in no acute distress. HEENT: normocephalic, extraocular movements intact, conjunctivae clear, no lesions on face. Mucous membranes moist. Oxygen nasal cannula in place. Neck: trachea midline, no visible masses, no external lesions. Abd: soft and nondistended. Musculoskeletal: Normal motor function. Neuro: cranial nerves II XII grossly intact. Psych: appropriate mood/affect. Skin: No pallor. Heme/lymph: No peripheral edema. Condition: Stable Discharged to: Home (staying with daughter in [place]). Pertinent tests/labs/imaging: Troponin I-0.097, 0.232, 0.147. WBC 17.62, 17.25- demargination from steroid, likely reactive. Lactic acid 1.3. CMP/lipase - WNL. CXR - mild cardiomegaly. No acute cardiopulmonary changes. CT Abd/pelv w/ contrast: Spigelian hernia LLQ containing omental fat. Aortic atherosclerosis. Prior granulomatous disease. L adrenal adenomatous hypertrophy. Medications: Please see med rec form. New meds: Pepcid x 1 month. Giving refill of therapeutic Lovenox. DC'd prednisone. Special instructions: Recommend that patient wear oxygen as needed to maintain oxygen saturation around 94-97%. Consider asking production support analyst if patient can go on a novel anticoagulant and discuss whether to go off of oxygen. Do activity as tolerated. Follow up: Follow up PCP in 1 week. Follow up with civil engineering professional as planned on October 16. Follow up with production support analyst in 2 weeks. Limit fluid intake to no more than 1-2L water daily. > 30 minutes of total time was spent on counseling and coordination of care for this patient's discharge.
--- NOTE | 2017-10-06 11:51 | GCON ---
[f rep st] CONSULTATION This is an 86-year-old female with past medical history of COPD, congestive heart failure, DVT, PE, who lives in [place] and has recently come to [facility] for a visit when she was admitted last week with left lower extremity edema and COPD exacerbation with indeterminate troponin. At that point in time, she was on warfarin. This was considered a failure of warfarin. The patient was put on subcu Lovenox and sent home, along with prednisone for her COPD. Over the past 2 days, the patient has not had a bowel movement. She came in with abdominal pain located in her left upper quadrant. Character is aching, severity of 5 of 10, without any diarrhea or blood, associated with nausea. The patient is constipated, as mentioned above. She had similar symptoms in the past, which subsided with drinking Ensure, because it "coats the stomach." The patient denies any chest pain, shortness of breath. Last evening, the patient had a bowel movement, after which she felt much better. PAST MEDICAL HISTORY: COPD, CHF, non-Hodgkin lymphoma, PE, DVT. PAST SURGICAL HISTORY: Bladder suspension and hysterectomy. MEDICATIONS: Cylinder Thyroid, diltiazem, Lovenox, fluticasone, Lasix, prednisone. ALLERGIES: None. SOCIAL HISTORY: Quit smoking in 1970s. Denies alcohol use. Denies recreational drugs. Lives in [place], visiting her daughter. FAMILY HISTORY: Noncontributory. REVIEW OF SYSTEMS: A 10-point review of systems is negative. PHYSICAL EXAM: GENERAL: Alert, oriented. Speaking in complete statements. Appears comfortable. HEENT: Normocephalic. Extraocular movements intact. Conjunctivae clear. No lesions. Mucous membranes moist. NECK: No JVD. No lymphadenopathy. No thyromegaly. CHEST: Unlabored and clear to auscultation. Fair air entry. No rales, rhonchi, or rub. HEART: S1, S2 regular. No S3. No murmurs heard. ABDOMEN: Soft, nontender. No guarding or rigidity. Bowel sounds present. EXTREMITIES: No edema. NEURO: Grossly intact. PSYCHIATRIC: Appropriate. LABS: White count 17.6, likely due to prednisone. Troponin mildly elevated, which is coming down. EKG shows nonspecific changes. IMPRESSION AND PLAN: This is an 86-year-old with non-Hodgkin lymphoma, chronic obstructive pulmonary disease exacerbation, congestive heart failure with wall motion abnormality, minimal increase in the troponin level without any evidence of ST-elevation myocardial infarction. The patient has had several evaluations in [place] with electrocardiogram as well as a stress test. The patient is firmly of an opinion that she would like to go back to [place] if possible and get her care over there. At current point in time, the patient is hemodynamically stable. She is going to go home on aspirin, Lovenox, diltiazem because she is not a candidate for beta leila because of chronic obstructive pulmonary disease. So in effect, the patient is on optimal medical management for CAD. If blood pressure allows, a small dose of lisinopril could be added to the regimen. The patient is wanting to get further evaluation as an outpatient in [place], which appears appropriate. I have explained to her the risks and benefits of doing this with a small risk of travel. The patient and her daughter understand it and are agreeable to it. No further interventions recommended from the cardiac standpoint. Thank you for letting us participate in patient's care. Feel free to call us for questions. /[id number]
[2017-10-06] MEDS: FUROSEMIDE 20 MG TAB PO SCH (12:01)
[2017-10-06] MEDS: ENOXAPARIN 60 MG/0.6 ML SYR SC SCH (12:01)
== END 2017-10-06 15:20 | disposition home or self-care (01) ==
LOC: F1N 12:03 → F2W 22:14
PROVIDERS: ADMIT Internal Medicine; ATTEND Internal Medicine
DX: R10.12 Left upper quadrant pain (principal); K43.9 Ventral hernia without obstruction or gangrene; I50.42 Chronic combined systolic (congestive) and diastolic (congestive) heart failure; J44.9 Chronic obstructive pulmonary disease, unspecified; R09.02 Hypoxemia; I82.4Z2 Acute embolism and thrombosis of unspecified deep veins of left distal lower extremity
CPT/HCPCS: 71046; 74177; 93005; 96374; 99285; G0378; J1650; J2405; Q9967